=== PATIENT | male | born 1930 | race Hispanic/Latino ===

== ENCOUNTER → 2018-02-12 | Outpatient (CLI) | payer MEDICARE | LOC: SHCH 10:26 | PROVIDERS: ATTEND Internal Medicine Cardiovascular Disease | DX: I87.2 Venous insufficiency (chronic) (peripheral) (principal) | CPT/HCPCS: 93970 ==

== ENCOUNTER → 2018-03-31 | Outpatient (CLI) | payer MEDICARE | END | disposition home or self-care (01) | LOC: SHCH 08:13 | PROVIDERS: ATTEND Internal Medicine Cardiovascular Disease | DX: Z09 Encounter for follow-up examination after completed treatment for conditions other than malignant neoplasm (principal) | CPT/HCPCS: 93971 ==

== ENCOUNTER → 2018-05-05 | Outpatient (CLI) | payer MEDICARE | END | disposition home or self-care (01) | LOC: SHCH 08:51 | PROVIDERS: ATTEND Internal Medicine Cardiovascular Disease | DX: Z09 Encounter for follow-up examination after completed treatment for conditions other than malignant neoplasm (principal) | CPT/HCPCS: 93971 ==

== ENCOUNTER 2018-09-06 11:40 | Emergency (ER) | payer MEDICARE | END 2018-09-06 14:00 | disposition home or self-care (01) | LOC: EDH 11:40 | DX: S00.03XA Contusion of scalp, initial encounter (principal); S50.312A Abrasion of left elbow, initial encounter; I10 Essential (primary) hypertension; E78.5 Hyperlipidemia, unspecified; E11.9 Type 2 diabetes mellitus without complications; X58.XXXA Exposure to other specified factors, initial encounter; Y93.89 Activity, other specified; Y92.89 Other specified places as the place of occurrence of the external cause; Y99.8 Other external cause status | CPT/HCPCS: 70450; 73080 ==

== ENCOUNTER 2019-01-14 08:17 | Inpatient (IN) | payer MEDICARE ==
[2019-01-14 08:58] LABS: BILIRUBIN,URINE Negative (NEGATIVE); COLOR,URINE Yellow (YELLOW); GLUCOSE, URINE (UA) >=1000 mg/dL (NEGATIVE); KETONES,URINE Negative (NEGATIVE); LEUKOCYTE ESTERASE ,URINE Negative (NEGATIVE); NITRATE,URINE Negative (NEGATIVE); OCCULT BLOOD,URINE Negative (NEGATIVE); PROTEIN,URINE Negative (NEGATIVE); UROBILINOGEN,URINE 0.2 mg/dL (0.2-1.0)
[2019-01-14 09:08] LABS: APPEARANCE,URINE CLEAR (CLEAR)
[2019-01-14 09:09] LABS: BACTERIA,URINE Rare /HPF (None Seen); RBC,URINE 0-1 /HPF (0-1); SQUAMOUS EPITHELIAL CELL,UR Rare /HPF (0-2); WBC,URINE 0-1 /HPF (0-1)
[2019-01-14] MEDS ORDERED: SODIUM CHLORIDE 0.9% 1000ML 2,000 ML IV ONE (09:09)
[2019-01-14 09:19] LABS: BASOPHILS % (AUTO) 0.3 % (0.0-5.0); HEMATOCRIT 35.7 % (42-54); LYMPHOCYTES % (AUTO) 5.5 % (21.0-51.0); MEAN CORPUSCULAR HEMOGLOBIN 28.9 pg (27.0-33.0); MEAN CORPUSCULAR HGB CONC 33.2 g/dL (32.0-36.0); MEAN CORPUSCULAR VOLUME 87.1 fL (79-99); MONOCYTES % (AUTO) 6.8 % (3.0-13.0); NEUTROPHILS % (AUTO) 87.4 % (40.0-77.0); PLATELET COUNT (AUTO) 183 K/uL (130-400); RED BLOOD CELL COUNT(AUTO) 4.09 MIL/uL (4.50-6.20); WHITE BLOOD COUNT (AUTO) 13.7 K/uL (4.8-10.8)
[2019-01-14 09:30] LABS: CREATININE 2.4 mg/dL (0.5-1.5); POTASSIUM 5.6 mmol/L (3.5-5.1)
[2019-01-14 09:34] LABS: INR 0.92 (0.85-1.15); PARTIAL THROMBOPLASTIN TIME 26.5 SEC (26.3-35.5); PROTHROMBIN TIME 9.7 SEC (9.6-11.6)
[2019-01-14 09:44] LABS: ALBUMIN 3.6 g/dL (3.5-5.0); BILIRUBIN,TOTAL 0.4 mg/dL (0.2-1.0)
[2019-01-14 09:51] LABS: TROPONIN I 1.24 ng/mL (0.00-0.06)
[2019-01-14] MEDS ORDERED: SODIUM CHLORIDE 0.9% 1000ML 1,000 ML IV ONE (10:33)
[2019-01-14] MEDS ORDERED: SODIUM CHLORIDE 0.9% 1000ML 1,000 ML IV SCH ×2 (11:44→17:30)
[2019-01-14] MEDS ORDERED: ACETAMINOPHEN 325 MG TAB PO PRN ×2 (11:45)
[2019-01-14] MEDS: NITROGLYCERIN 1GM/1 INCH PACKET TD SCH ×2 (11:45→19:45)
[2019-01-14] MEDS ORDERED: ONDANSETRON HCL 4 MG/2 ML VIAL IV PRN (11:45)
[2019-01-14] MEDS ORDERED: HYDRALAZINE HCL 20 MG/ML VIAL IV PRN (11:45)
[2019-01-14] MEDS ORDERED: LACTULOSE 20 GM/30 ML UDCUP PO PRN (11:45)
[2019-01-14] MEDS ORDERED: EPINEPHRINE 0.1 MG/ML 10 ML SYG IVP ONE (12:00)
[2019-01-14] MEDS ORDERED: SUCCINYLCHOLINE CHLORIDE 20 MG/ML 10 ML VIAL IVP ONE (12:00)
[2019-01-14] MEDS ORDERED: ETOMIDATE 2 MG/ML 10 ML VIAL IVP ONE (12:00)
[2019-01-14 12:04] LABS: LYMPHOCYTES % (MANUAL) 7 % (22-44); MAN.DIFF COMMENT-IMPRESSION MANUAL DIFFERENTIAL; MONOCYTES % (MANUAL) 7 % (2-9); PLATELET MORPHOLOGY COMMENT ADEQUATE; SEGMENTED NEUTROPHILS % 86 % (40-70)
[2019-01-14] MEDS ORDERED: FAMOTIDINE/PF 20 MG/2 ML VIAL IV SCH ×2 (12:04→21:00)
[2019-01-14 12:19] LABS: TROPONIN I 2.49 ng/mL (0.00-0.06)
[2019-01-14] MEDS ORDERED: PROPOFOL 1000 MG/100 ML 100 ML IV ONE ×2 (14:04→18:37)
[2019-01-14 14:19] LABS: ABG BASE EXCESS -17.2 mmol/L (-2.0-3.0); ABG HCO3 12.1 mmol/L (21.0-28.0); ABG OXYGEN SATURATION 93.1 % (95.0-99.0); ABG PCO2 42 mmHg (35-48)
[2019-01-14] MEDS ORDERED: SODIUM BICARB 50MEQ 50ML VIAL ONE ×2 (14:23→16:17)
[2019-01-14] MEDS ORDERED: NOREPINEPHRINE BITARTRATE 1 MG/1 ML ML IV ONE (15:04)
[2019-01-14] MEDS ORDERED: SODIUM CHLORIDE 0.9% 250 ML IV ONE (15:04)
--- NOTE | 2019-01-14 15:13 | NUR ---
AIDAN HOANG Sw present for aidan hoang. Family present, son Haris Padilla is MPOA. Per family, pt lives alone, has daily provider, uses scooter to ambulate. Son states pt had no directives, and wanted pt intubated. Sw to follow and assist as needed
[2019-01-14] MEDS ORDERED: NOREPINEPHRINE 4MG/NS 250ML 250 ML IV SCH ×2 (15:15→19:45)
[2019-01-14 15:16] LABS: TROPONIN I 3.37 ng/mL (0.00-0.06)
--- NOTE | 2019-01-14 15:20 | NUR ---
Dr. Avila called to update on patients low blood pressure. He ordered a PICC line and levo drip.
[2019-01-14] MEDS ORDERED: SIMV20TA6 PO (15:29)
[2019-01-14] MEDS ORDERED: CHOL500050 PO (15:29)
[2019-01-14] MEDS ORDERED: CLOP75TA14 PO (15:29)
[2019-01-14] MEDS ORDERED: LOSA50TA64 PO (15:29)
[2019-01-14] MEDS ORDERED: ESOM40CA54 PO (15:29)
[2019-01-14] MEDS ORDERED: HYDR12.530 PO (15:29)
[2019-01-14 16:09] LABS: ABG BASE EXCESS -10.3 mmol/L (-2.0-3.0); ABG OXYGEN SATURATION 96.1 % (95.0-99.0); ABG PCO2 32 mmHg (35-48)
[2019-01-14] MEDS ORDERED: INSULIN HUMULIN R 100 UNIT/ML 3ML IV SCH (16:15)
[2019-01-14] MEDS ORDERED: DEXTROSE 50%-WATER 25 GM/50 ML VIAL IV SCH (16:15)
[2019-01-14] MEDS ORDERED: INSULIN HUMULIN R 100 UNIT/ML 3ML ONE (16:16)
[2019-01-14] MEDS ORDERED: DEXTROSE 50%-WATER 50 ML DISP.SYRIN IV ONE (16:24)
--- NOTE | 2019-01-14 16:45 | NUR ---
Spoke with Dr. Ramirez and updated on patients condition. He was to diurese patient over night and start weaning protocol in am to extubated patient. Addendum: 01/14/19 at 2025 by ALEXY BENAVIDEZ RN RN not written on incorrect patient.
[2019-01-14] MEDS ORDERED: FENTANYL 2500MCG+NS 250ML 250 ML IV SCH (17:00)
[2019-01-14] MEDS ORDERED: SODIUM BICARB 50MEQ 50ML VIAL IV SCH (17:06)
[2019-01-14 17:17] LABS: BASOPHILS % (AUTO) 0.1 % (0.0-5.0); HEMATOCRIT 35.5 % (42-54); LYMPHOCYTES % (AUTO) 3.6 % (21.0-51.0); MEAN CORPUSCULAR HEMOGLOBIN 28.8 pg (27.0-33.0); MEAN CORPUSCULAR HGB CONC 32.3 g/dL (32.0-36.0); MONOCYTES % (AUTO) 6.2 % (3.0-13.0); NEUTROPHILS % (AUTO) 90.1 % (40.0-77.0); PLATELET COUNT (AUTO) 217 K/uL (130-400); RED BLOOD CELL COUNT(AUTO) 3.99 MIL/uL (4.50-6.20); RED CELL DISTRIBUTION WIDTH 14.6 % (11.0-15.5); WHITE BLOOD COUNT (AUTO) 15.9 K/uL (4.8-10.8)
[2019-01-14 17:27] LABS: CREATININE 2.6 mg/dL (0.5-1.5); POTASSIUM 5.5 mmol/L (3.5-5.1)
--- NOTE | 2019-01-14 17:30 | NUR ---
Dr. Ramirez's REDUCING SYSTEM OPERATOR rounded on patient and gave verbal orders for stat labs, abg's, antibiotics, and new sedation as well as PRN Kayexalate. Also ordered 10u of insulin IV with D50, and sodium bicarb for a potassium level of 6.2.
[2019-01-14 17:32] LABS: BILIRUBIN,TOTAL 0.5 mg/dL (0.2-1.0); MAGNESIUM 1.8 mg/dL (1.80-2.40); PHOSPHORUS 3.8 mg/dL (2.5-4.9); TOTAL PROTEIN, SERUM 6.7 g/dL (6.0-8.3)
[2019-01-14] MEDS ORDERED: SODIUM POLYSTYRENE SULFONATE 15 GM/60 ML ML PO SCH (17:45)
[2019-01-14] MEDS ORDERED: SODIUM POLYSTYRENE SULFONATE 15 GM/60 ML ML PO PRN (18:00)
[2019-01-14 18:10] LABS: ABG BASE EXCESS -10.9 mmol/L (-2.0-3.0); ABG HCO3 14.8 mmol/L (21.0-28.0); ABG OXYGEN SATURATION 94.2 % (95.0-99.0); ABG PCO2 33 mmHg (35-48)
[2019-01-14 19:00] VITALS: BP 113/66
[2019-01-14] MEDS ORDERED: PHARMACY COMMUNICATION MISC SCH (19:45)
[2019-01-14] MEDS ORDERED: NOREPINEPHRINE BITARTRATE 8 MG/NS 250ML IV SCH ×2 (19:45)
[2019-01-14 20:00] VITALS: BP 106/59
[2019-01-14] MEDS ORDERED: PROPOFOL 1000 MG/100 ML IV PRN (20:00)
[2019-01-14] MEDS ORDERED: LEVOFLOXACIN 500 MG/D5W 100 ML 100 ML IV SCH (20:00)
[2019-01-14 21:00] VITALS: BP 118/64
[2019-01-14] MEDS ORDERED: INSULIN HUMULIN R 100 UNIT/ML 3ML SQ SCH (21:00)
[2019-01-14] MEDS ORDERED: ZOSYN 3.375GM+NS 50ML 50 ML IV SCH (21:00)
[2019-01-14 21:45] LABS: TROPONIN I 10.43 ng/mL (0.00-0.06)
[2019-01-14 22:00] VITALS: BP 114/63
[2019-01-14 23:00] VITALS: BP 114/57
[2019-01-15] VITALS: BP 106/58
[2019-01-15 01:00] VITALS: BP 101/52
--- NOTE | 2019-01-15 01:27 | NUR ---
FLAT LINE NOTED ON CORN PICKER. AUSCULTATED FOR 1 MINUTE AT HEART; NO HEART RATE HEARD/DETECTED. PALPATED CAROTID FOR 1 MINUTE AND NO PULSE FELT/DETECTED. FAMILY AT BEDSIDE MADE AWARE.
--- NOTE | 2019-01-15 01:50 | NUR ---
MIRELA CALLED; REFERENCE# [id number], SPOKE TO "ENOCH" WHO DECLINED PT FOR ANY AND ALL DONATIONS DUE TO AGE.
--- NOTE | 2019-01-15 02:05 | NUR ---
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 AWAITING ER DOCTOR AIDE TO PRONOUNCE.
--- NOTE | 2019-01-15 02:15 | NUR ---
PRONOUNCED AT 02:15.
[2019-01-15] MEDS ORDERED: INSULIN GLARGINE 100 UNITS/ML 10 ML VIAL SQ SCH (07:30)
[2019-01-15] MEDS ORDERED: ASPIRIN 325 MG TABLET PO SCH (09:00)
[2019-01-15] MEDS ORDERED: ENOXAPARIN SODIUM 40 MG/0.4 ML SYRINGE SQ SCH (09:00)
[2019-01-15] MEDS ORDERED: INSULIN HUMULIN R 100 UNIT/ML 3ML SQ SCH (12:00)
== END 2019-01-15 02:15 | disposition expired ==
LOC: EDH 08:17 → EDHIP 11:44 → 2BH 14:48
PROVIDERS: ADMIT Internal Medicine; ATTEND Internal Medicine
PROC: 02HV33Z Insertion of Infusion Device into Superior Vena Cava, Percutaneous Approach (ICD-10-PCS; principal; 2019-01-14)
PROC: 5A1935Z Respiratory Ventilation, Less than 24 Consecutive Hours (ICD-10-PCS; 2019-01-14)
PROC: 0BH17EZ Insertion of Endotracheal Airway into Trachea, Via Natural or Artificial Opening (ICD-10-PCS; 2019-01-14)
PROC: 5A12012 Performance of Cardiac Output, Single, Manual (ICD-10-PCS; 2019-01-14)
DX: I21.4 Non-ST elevation (NSTEMI) myocardial infarction (principal); J96.01 Acute respiratory failure with hypoxia; N17.9 Acute kidney failure, unspecified; N18.4 Chronic kidney disease, stage 4 (severe); Z99.11 Dependence on respirator [ventilator] status; E11.22 Type 2 diabetes mellitus with diabetic chronic kidney disease; E11.42 Type 2 diabetes mellitus with diabetic polyneuropathy; E11.51 Type 2 diabetes mellitus with diabetic peripheral angiopathy without gangrene; E78.2 Mixed hyperlipidemia; I13.10 Hypertensive heart and chronic kidney disease without heart failure, with stage 1 through stage 4 chronic kidney disease, or unspecified chronic kidney disease; I46.2 Cardiac arrest due to underlying cardiac condition; Z66 Do not resuscitate; Z89.431 Acquired absence of right foot; Z83.3 Family history of diabetes mellitus; Z82.49 Family history of ischemic heart disease and other diseases of the circulatory system; Z90.49 Acquired absence of other specified parts of digestive tract; Z79.84 Long term (current) use of oral hypoglycemic drugs
CPT/HCPCS: 31500; 36415; 36600; 71045; 76775; 80053; 81001; 82435; 82550; 82803; 82947; 82948; 83605; 83735; 83874; 84100; 84132; 84295; 84443; 84484; 85018; 85025; 85610; 85730; 86850; 86900; 86901; 87040; 87088; 92950; 93005; 93306; 94002; 94003; 99291; C1894; G0378; J0171; J0330; J1815; J1956; J2543; J2704; J3010; J3490; J7030; J7070